=== PATIENT | male | born 1965 | race Caucasian/White ===

== ENCOUNTER → 2019-03-25 | Outpatient (CLI) | payer OTHER ==
[~2019-03-25] MED LIST: ASPI81CH PO; CEPH500 PO; HYDACE5 PO; HYDCHL12.5 PO; LEVFLO500 PO; LISI20 PO; OXYACE5T PO; PROM25 PO
[2019-03-25 09:00] LABS: BASOPHILS ABSOLUTE AUTO 0.03 K/mm3 (0.00-0.23); BASOPHILS PERCENT AUTO 0 % (0-2); EOSINOPHILS ABSOLUTE AUTO 0.21 K/mm3 (0.00-0.68); EOSINOPHILS PERCENT AUTO 2 % (0-6); Hemoglobin 15.1 g/dL (13.5-17.5); IMMATURE GRAN ABSOLUTE AUTO 0.12 K/mm3 (0.00-0.10); IMMATURE GRAN PERCENT AUTO 1 % (0-1); LYMPHOCYTES ABSOLUTE AUTO 2.94 K/mm3 (0.84-5.20); LYMPHOCYTES PERCENT AUTO 34 % (21-46); MONOCYTES ABSOLUTE AUTO 0.64 K/mm3 (0.16-1.47); MONOCYTES PERCENT AUTO 7 % (4-13); Mean Corpuscular HGB 28.5 pg (26.0-34.0); Mean Corpuscular HGB Conc 33.6 g/dL (31.5-36.5); Mean Corpuscular Volume 85 fL (80-100); Mean Platelet Volume 9.7 fL (9.1-12.4); NEUTROPHILS ABSOLUTE AUTO 4.72 K/mm3 (1.96-9.15); NEUTROPHILS PERCENT AUTO 55 % (41-73); Platelet Count 280 K/mm3 (150-400); RDW Standard Deviation 40.1 fL (35.1-46.3); Red Blood Cell Count 5.29 M/mm3 (4.30-5.90); White Blood Cell Count 8.66 K/mm3 (4.00-11.30)
[2019-03-25 09:08] LABS: Alanine Aminotransfer (ALT/SGP 31 U/L (12-78); Albumin, Blood 3.9 g/dL (3.4-5.0); Albumin/Globulin Ratio 1.1 (0.8-1.8); Alk Phos 24 U/L (40-126); Anion Gap 8 mmol/L (6-16); Aspartate Aminotrans (AST/SGOT 18 U/L (12-37); Bilirubin, Total 0.8 mg/dL (0.1-1.0); Blood Urea Nitrogen 19 mg/dL (8-24); Bun/Creatinine Ratio 17.6 (12.0-20.0); CO2, Blood 29 mmol/L (21-32); Calcium, Blood 8.5 mg/dL (8.5-10.1); Chloride, Blood 102 mmol/L (98-108); Creatinine, Blood 1.08 mg/dL (0.60-1.20); Globulin, Blood 3.7 g/dL (2.2-4.0); Glomerular Filtration Rate >60 (60-); Glucose, Blood 102 mg/dL (70-99); Potassium, Blood 4.1 mmol/L (3.5-5.5); Sodium, Blood 139 mmol/L (136-145); Total Protein, Blood 7.6 g/dL (6.4-8.2)
== END | disposition home or self-care (01) ==
LOC: LAB SHORT 08:54 → LAB EV 08:54
PROVIDERS: Physician Assistant Medical
DX: R10.9 Unspecified abdominal pain (principal)
CPT/HCPCS: 80053; 85025

== ENCOUNTER → 2020-03-06 | Outpatient (CLI) | payer OTHER ==
[2020-03-06 09:27] LABS: BASOPHILS ABSOLUTE AUTO 0.02 K/mm3 (0.00-0.23); BASOPHILS PERCENT AUTO 0 % (0-2); EOSINOPHILS ABSOLUTE AUTO 0.13 K/mm3 (0.00-0.68); EOSINOPHILS PERCENT AUTO 2 % (0-6); Hematocrit 45.5 % (37.0-53.0); Hemoglobin 15.3 g/dL (13.5-17.5); IMMATURE GRAN ABSOLUTE AUTO 0.08 K/mm3 (0.00-0.10); IMMATURE GRAN PERCENT AUTO 1 % (0-1); LYMPHOCYTES ABSOLUTE AUTO 2.16 K/mm3 (0.84-5.20); LYMPHOCYTES PERCENT AUTO 31 % (21-46); MONOCYTES ABSOLUTE AUTO 0.61 K/mm3 (0.16-1.47); MONOCYTES PERCENT AUTO 9 % (4-13); Mean Corpuscular HGB 28.4 pg (26.0-34.0); Mean Corpuscular HGB Conc 33.6 g/dL (31.5-36.5); Mean Corpuscular Volume 85 fL (80-100); NEUTROPHILS ABSOLUTE AUTO 4.04 K/mm3 (1.96-9.15); NEUTROPHILS PERCENT AUTO 57 % (41-73); Platelet Count 269 K/mm3 (150-400); RDW Coefficient Variation 13.2 % (11.7-14.2); RDW Standard Deviation 40.2 fL (35.1-46.3); Red Blood Cell Count 5.38 M/mm3 (4.30-5.90); White Blood Cell Count 7.04 K/mm3 (4.00-11.30)
[2020-03-06 09:41] LABS: Alanine Aminotransfer (ALT/SGP 36 U/L (12-78); Albumin/Globulin Ratio 1.1 (0.8-1.8); Alk Phos 20 U/L (40-126); Anion Gap 8 mmol/L (6-16); Aspartate Aminotrans (AST/SGOT 15 U/L (12-37); Bilirubin, Total 0.7 mg/dL (0.1-1.0); Blood Urea Nitrogen 19 mg/dL (8-24); Bun/Creatinine Ratio 17.1 (12.0-20.0); CO2, Blood 30 mmol/L (21-32); Calcium, Blood 8.4 mg/dL (8.5-10.1); Chloride, Blood 109 mmol/L (98-108); Creatinine, Blood 1.11 mg/dL (0.60-1.20); Globulin, Blood 3.5 g/dL (2.2-4.0); Glomerular Filtration Rate >60 (60-); Glucose, Blood 103 mg/dL (70-99); Potassium, Blood 4.4 mmol/L (3.5-5.5); Sodium, Blood 147 mmol/L (136-145); Total Protein, Blood 7.5 g/dL (6.4-8.2)
== END | disposition home or self-care (01) ==
LOC: LAB EV 09:22 → LAB SHORT 09:22
PROVIDERS: General Practice
DX: R10.9 Unspecified abdominal pain (principal)
CPT/HCPCS: 80053; 85025; 87086

== ENCOUNTER 2021-05-05 12:29 | Day surgery (SDC) | payer OTHER ==
[~2021-05-05] VITALS: Ht 193 cm; Wt 143.5 kg
[~2021-05-05 12:29] MED LIST changes: +ZESTRIL40 M1 PO
== END 2021-05-05 14:25 | disposition home or self-care (01) ==
LOC: ORSCSDS 12:29
PROVIDERS: Internal Medicine Gastroenterology
PROC: 0DJD8ZZ Inspection of Lower Intestinal Tract, Via Natural or Artificial Opening Endoscopic (ICD-10-PCS; principal; 2021-05-05 13:45)
DX: Z12.11 Encounter for screening for malignant neoplasm of colon (principal); Z86.010 Personal history of colon polyps; K57.30 Diverticulosis of large intestine without perforation or abscess without bleeding; I10 Essential (primary) hypertension; G47.33 Obstructive sleep apnea (adult) (pediatric); E66.01 Morbid (severe) obesity due to excess calories; Z68.38 Body mass index [BMI] 38.0-38.9, adult; Z79.899 Other long term (current) drug therapy
CPT/HCPCS: J2704; J7120

== ENCOUNTER 2021-11-23 12:01 | Inpatient (IN) | payer OTHER ==
[~2021-11-23] VITALS: Ht 193 cm; Wt 151.5 kg
[2021-11-23 12:40] LABS: BASOPHILS ABSOLUTE AUTO 0.04 K/mm3 (0.00-0.23); BASOPHILS PERCENT AUTO 0 % (0-2); EOSINOPHILS PERCENT AUTO 1 % (0-6); Hematocrit 46.6 % (37.0-53.0); Hemoglobin 15.7 g/dL (13.5-17.5); IMMATURE GRAN ABSOLUTE AUTO 0.06 K/mm3 (0.00-0.10); IMMATURE GRAN PERCENT AUTO 1 % (0-1); LYMPHOCYTES ABSOLUTE AUTO 2.26 K/mm3 (0.84-5.20); LYMPHOCYTES PERCENT AUTO 25 % (21-46); MONOCYTES ABSOLUTE AUTO 0.92 K/mm3 (0.16-1.47); MONOCYTES PERCENT AUTO 10 % (4-13); Mean Corpuscular HGB 28.7 pg (26.0-34.0); Mean Corpuscular HGB Conc 33.7 g/dL (31.5-36.5); Mean Corpuscular Volume 85 fL (80-100); Mean Platelet Volume 9.7 fL (9.1-12.4); NEUTROPHILS ABSOLUTE AUTO 5.59 K/mm3 (1.96-9.15); NEUTROPHILS PERCENT AUTO 62 % (41-73); Platelet Count 270 K/mm3 (150-400); RDW Coefficient Variation 12.3 % (11.7-14.2); RDW Standard Deviation 38.2 fL (35.1-46.3); Red Blood Cell Count 5.47 M/mm3 (4.30-5.90); White Blood Cell Count 8.97 K/mm3 (4.00-11.30)
[2021-11-23 12:52] LABS: Alanine Aminotransfer (ALT/SGP 36 U/L (12-78); Albumin, Blood 3.9 g/dL (3.4-5.0); Albumin/Globulin Ratio 1.1 (0.8-1.8); Alk Phos 27 U/L (50-136); Anion Gap 4 mmol/L (6-16); Aspartate Aminotrans (AST/SGOT 16 U/L (12-37); Bilirubin, Total 0.8 mg/dL (0.1-1.0); Blood Urea Nitrogen 12 mg/dL (8-24); Bun/Creatinine Ratio 10.8 (12.0-20.0); CO2, Blood 28 mmol/L (21-32); Calcium, Blood 8.7 mg/dL (8.5-10.1); Chloride, Blood 106 mmol/L (98-108); Creatinine, Blood 1.11 mg/dL (0.60-1.20); Globulin, Blood 3.5 g/dL (2.2-4.0); Glomerular Filtration Rate >60 (60-); Glucose, Blood 113 mg/dL (70-99); Potassium, Blood 3.7 mmol/L (3.5-5.5); Sodium, Blood 138 mmol/L (136-145); Total Protein, Blood 7.4 g/dL (6.4-8.2); Troponin I 0.244 ng/mL (0.000-0.040)
[2021-11-23 13:17] LABS: Influenza A, PCR NEGATIVE (NEGATIVE); Influenza B, PCR NEGATIVE (NEGATIVE); Resp Syncytial Virus, PCR NEGATIVE (NEGATIVE); SARS-Cov-2 (COVID-19) PCR, MMC NEGATIVE (NEGATIVE)
[2021-11-23 14:30] LABS: Anti-Xa UFH, PHA Monitoring <0.10 IU/mL; International Normalized Ratio 1.06; Prothrombin Time Results 11.1 Sec (9.7-11.5)
--- NOTE | 2021-11-23 18:35 | NUR ---
PT ARRIVAL ON THE UNIT.... PT ARRIVES ON THE UNIT FROM THE COMIC WRITER AT 1645, PT IS S/P STENT PLACEMENT TO THE RCA. TR BAND IN PLACE TO THE RIGHT RADIAL SITE, SMALL AMOUNT OF OOZING NOTED. THE PT DENIES ANY PAIN TO THE SITE, THE PT ALSO DENIES ANY CHEST PAIN/PRESSURE AT THIS TIME JUST STATES "MY CHEST FEELS A LITTLE FUNNY." THE PT DOES C/O OF A 3/10 HEADACHE. THE PT IS HYPERTENSIVE ON ARRIVAL WITH SBPs IN THE 190'S-200'S. THE PT IS ON RA WITH O2 SATS >90% L/S CLEAR T/O. BT PRESENT AND NORMOACTIVE, ABD IS LARGE, SOFT AND NONTENDER TO PALP.THE PT IS IN SR IN THE 70'S. TR BAND HAS 12MLS OF AIR. THE PT IS USING THE URINAL TO VOID. AT APROX 1730 THE PT STARTED TO C/O OF CHEST PAIN THAT STARTED AT A 4 THEN QUICKLY WENT TO A 6. THE PT WAS MEDICATED WITH IV MORPHINE PER EMAR THIS BROUGHT THE CHEST PAIN FROM A 6/10 TO A 3/10. HEPARIN GTT RUNNING AT 15 UNITS/KG/HR PER ORDERS. CALL LIGHT IN REACH WILL CONTINUE TO MONITOR.
--- NOTE | 2021-11-23 20:00 | NUR ---
ASSUMED CARE: AOX3. BEDREST. CHEST PAIN RIGHT MEDIAL, DULL PRESSURE 4/10. HEPIAN INFUSING. NO SOB. SINUS AT THIS TIME PER TELE STRIPS. CATH STENT TO RCA, T-BAND IN PLACE. HYPERTENSIVE IN THE 180'S. HR 70'S. NITRO DRIP STARTED, WILL TITRATE TO ASSIST CP. USES URINAL IN BED. WILL START ANOTHER IV, MONITOR CP, LABS, TR-BAND, ECT. CALL LIGHT IN REACH.
--- NOTE | 2021-11-23 23:52 | NUR ---
TR-BAND REMOVED, NO BLEEDING OR HEMATOMA NOTED. PLACED TEGADERM AND ARMBOARD. WILL MONITOR FOR CHANGES.
[2021-11-24 03:29] LABS: BASOPHILS ABSOLUTE AUTO 0.03 K/mm3 (0.00-0.23); BASOPHILS PERCENT AUTO 0 % (0-2); EOSINOPHILS ABSOLUTE AUTO 0.02 K/mm3 (0.00-0.68); EOSINOPHILS PERCENT AUTO 0 % (0-6); Hematocrit 43.1 % (37.0-53.0); Hemoglobin 14.5 g/dL (13.5-17.5); IMMATURE GRAN ABSOLUTE AUTO 0.06 K/mm3 (0.00-0.10); IMMATURE GRAN PERCENT AUTO 1 % (0-1); LYMPHOCYTES ABSOLUTE AUTO 1.64 K/mm3 (0.84-5.20); LYMPHOCYTES PERCENT AUTO 16 % (21-46); MONOCYTES ABSOLUTE AUTO 0.87 K/mm3 (0.16-1.47); MONOCYTES PERCENT AUTO 9 % (4-13); Mean Corpuscular HGB 28.5 pg (26.0-34.0); Mean Corpuscular HGB Conc 33.6 g/dL (31.5-36.5); Mean Corpuscular Volume 85 fL (80-100); Mean Platelet Volume 9.8 fL (9.1-12.4); NEUTROPHILS PERCENT AUTO 74 % (41-73); Platelet Count 269 K/mm3 (150-400); RDW Coefficient Variation 12.6 % (11.7-14.2); RDW Standard Deviation 38.6 fL (35.1-46.3); Red Blood Cell Count 5.08 M/mm3 (4.30-5.90); White Blood Cell Count 10.22 K/mm3 (4.00-11.30)
[2021-11-24 03:56] LABS: Anion Gap 6 mmol/L (6-16); Blood Urea Nitrogen 16 mg/dL (8-24); Bun/Creatinine Ratio 14.5 (12.0-20.0); CHOL/HDL RATIO 4.7; CO2, Blood 26 mmol/L (21-32); Calcium, Blood 8.3 mg/dL (8.5-10.1); Chloride, Blood 106 mmol/L (98-108); Cholesterol 170 mg/dL (50-200); Glomerular Filtration Rate >60 (60-); Glucose, Blood 123 mg/dL (70-99); HDL Cholesterol 36 mg/dL (>39); LDL/HDL RATIO 3.1; Low Density Lipoprotein Chol 112 mg/dL (0-110); Potassium, Blood 4.1 mmol/L (3.5-5.5); Sodium, Blood 138 mmol/L (136-145); Triglycerides 112 mg/dL (30-160); Very Low Density Lipoprot Chol 22 mg/dL (6-32)
--- NOTE | 2021-11-24 06:18 | NUR ---
SHIFT SUMMARY: AOX3. BEDREST. CURRENTLY CHEST PAIN FREE. NITRO DRIP STOPPED, HE ONLY RECEIVED FOR SHORT PERIOD WITH THE HIGHEST 20MG. HEPARIN CONTINUES TO INFUSE AT 15. TR-BAND IS REMOVED AND SITE IS CDI WITH TEGADERM AND IV BOARD IN PLACE. HR AVERAGE IN THE 60-70'S. BP IS CURRENTLY IN THE 112/75. SATS 95% ON RA. NEW IV STARTED LEFT FA. LAST TROPONIN 1.7. USES URINAL IN BED. COMPLIANT WITH CARE. NAUSEA RESOLVED. NO SOB. NO OTHER CHANGES TO NOTE. CALL LIGHT IN REACH.
--- NOTE | 2021-11-24 08:52 | NUR ---
AM NOTE.... ASSUMED CARE OF PT AT 0700, THE PT IS A&Ox4. THE PT IS ON A HEPARIN GTT RUNNING PER ORDERS. THE PT'S NITRO GTT WAS STOPPED APROX 0600. THE PT DENIES ANY CHEST PAIN "SINCE LAST NIGHT." THE PT'S VS STABLE AT THE START OF THIS SHFIT. THE PT IS IN SR IN THE 60'S-70'S. NO EDEMA NOTED ON ASSESSMENT. THE RIGHT RADIAL SITE IS C/D/I, NO SWELLING, BLEEDING OR HEMATOMA NOTED. THE PT DENIES ANY NUMBNESS/TINGLING. L/S CLEAR T/O ON RA, USES CPAP FOR SLEEPING. BT PRESENT AND NORMOACTIVE, ABD IS LARGE, SOFT AND NONTENDER TO PALP. CALL LIGHT IN REACH WILL CONTINUE TO MONITOR.
--- NOTE | 2021-11-24 13:05 | NUR ---
PT UPDATE.... THE PT GOT UP WITH STAFF ASSIST AND WALKED AROUND THE ROOM, THE PT DENIED ANY CHEST PAIN/PRESSURE N/V OR SOB DURING HIS WALK. THE PT'S HR WAS IN THE 70'S AND HIS BP STABLE DUIRNG THIS TIME. HEPARIN GTT RUNNING PER ORDERS, PER DR. OSBORNE THE HEPARIN GTT IS TO BE STOPPED AT 1500 TODAY. WILL CONTINUE TO MONITOR.
--- NOTE | 2021-11-24 16:59 | NUR ---
SHIFT SUMMARY.... NO ACUTE NEGATIVE CHANGES NOTED THIS SHIFT. THE PT'S VS HAVE BEEN STABLE. THE PT HAS DENIED ANY CHEST PAIN THIS SHIFT. HE HAS BEEN UP IN THE CHAIR AND WALKING AROUND THE ROOM. THE PT IS INDEPENDENT WITH ADLs THE RIGHT RADIAL SITE IS STABLE, NO BLEEDING, OR HEMATOMA NOTED. THE HEPARIN WAS STOPPED PER DR. Kelley AT 1640. THE TOPONINS ARE TRENDING DOWN. THE PT IS TO TRANSFER TO PCU, REPORT CALLED TO ALIS RUBIO. ALL OF PT'S BELONGINGS PACKED AND SENT WITH THE PT.
--- NOTE | 2021-11-24 17:00 | NUR ---
Assumed care of patient. Report recieved from Rosalie FORENSIC NURSE. Patient arrived via WC. He is alert and oriented. Denies CP at this time. He is IND to bathroom. He denies needs at this time. Will continue to monitor.
--- NOTE | 2021-11-24 23:59 | NUR ---
ASSUMED CARE OF PT AT 1900. A/OX4. PT REPORTS HEADACHE IN L FRONTAL REGION THAT PATIENT ATTRIBUTES TO DEHYDRATION. AFTER DRINKING SOME WATER T/O OUR ENCOUNTER HE REPORTS IT BETTER. NEUROS INTACT. DENIES ANY CP/PRESSURE. USES CPAP AT HS. SR ON TELE IN 70'S. R RADIAL SITE WITH MINIMAL OLD DRAINAGE NOTED, DISTAL PULSES AND CAP REFILL WNL. WILL UPDATE CHANGES OCCUR.
[2021-11-25] MEDS ORDERED: ATOR20 PO (12:38)
[2021-11-25] MEDS ORDERED: CLOP75 PO (12:39)
[2021-11-25] MEDS ORDERED: Isosorbide Mono30 MG PO (12:39)
[2021-11-25] MEDS ORDERED: Lopressor 25 mg25 MG PO (12:40)
== END 2021-11-25 13:45 | disposition home or self-care (01) | DRG 247 ==
LOC: ER 12:01 → ICUE 14:52 → PCU 14:52 → ICUW 15:49 → ICUE 16:12 → PCU 11-24 17:08
PROVIDERS: Internal Medicine Interventional Cardiology; Physician Assistant; Student in an Organized Health Care Education/Training Program; ADMIT Internal Medicine
PROC: 027034Z Dilation of Coronary Artery, One Artery with Drug-eluting Intraluminal Device, Percutaneous Approach (ICD-10-PCS; principal; 2021-11-23)
PROC: 02C03ZZ Extirpation of Matter from Coronary Artery, One Artery, Percutaneous Approach (ICD-10-PCS; 2021-11-23)
PROC: 4A023N7 Measurement of Cardiac Sampling and Pressure, Left Heart, Percutaneous Approach (ICD-10-PCS; 2021-11-23)
PROC: B2111ZZ Fluoroscopy of Multiple Coronary Arteries using Low Osmolar Contrast (ICD-10-PCS; 2021-11-23)
PROC: 3E02340 Introduction of Influenza Vaccine into Muscle, Percutaneous Approach (ICD-10-PCS; 2021-11-23)
DX: I21.4 Non-ST elevation (NSTEMI) myocardial infarction (principal); I16.1 Hypertensive emergency; Z20.822 Contact with and (suspected) exposure to COVID-19; I25.10 Atherosclerotic heart disease of native coronary artery without angina pectoris; E78.5 Hyperlipidemia, unspecified; E66.9 Obesity, unspecified; Z68.37 Body mass index [BMI] 37.0-37.9, adult; Z23 Encounter for immunization; I10 Essential (primary) hypertension; Z79.82 Long term (current) use of aspirin; Z79.899 Other long term (current) drug therapy
CPT/HCPCS: 0241U; 36415; 71046; 76937; 80048; 80053; 80061; 83880; 84484; 85025; 85347; 85520; 85610; 90686; 92978; 93005; 93010; 93458; 94660; 94762; 99152; 99153; 99285-25; A9270; C1725; C1753; C1757; C1769; C1874; C1887; C1894; C8929; C9600; J0360; J0461; J1644; J1940; J2250; J2270; J2405; J3010; J3246; J7030; J7050; Q9957; Q9967

== ENCOUNTER 2021-12-24 08:32 | Day surgery (SDC) | payer OTHER ==
[~2021-12-24] VITALS: Ht 193 cm; Wt 145.0 kg
[~2021-12-24 08:32] MED LIST changes: +ATOR20 PO; +CLOP75 PO; +Isosorbide Mono30 MG PO; +Lopressor 25 mg25 MG PO
--- NOTE | 2021-12-24 12:35 | NUR ---
PT TO RECOVERY ROOM POST PROCEDURE. PT AWAKE AND CONVERSING APPROPRIATELY, REPORTS FEELING ANXIOUS POST PROCEDURE. PT REPORTS CHEST DISCOMFORT 1-2/10 POST INTERVENTION, DR PAREKH AWARE. MONITOR SB/SR 50-60'S, B/P 185/124, AFEBRILE, SPO2 95% RA. R RADIAL SITE NO SWELLING/HEMATOMA, TR BAND IN PLACE; RUE POSITIVE PLEUTH POST TR BAND PLACEMENT.
[2021-12-24] MEDS ORDERED: LISI20 PO (12:54)
--- NOTE | 2021-12-24 13:35 | NUR ---
PT REPORTS ANXIETY RESOLVED, CHEST PAIN REMAINS 1-2/.
--- NOTE | 2021-12-24 15:44 | NUR ---
PT DRESSED SELF WITHOUT ISSUE, SITE UNCHANGED; AMB TO BATHROOM, SITE UNCHANGED. TR BAND REMOVED CLOTH DOT AND WRIST IMMOBILIZER PLACED, IV REMOVED-CANNULA INTACT
[2021-12-24] MEDS ORDERED: METO25ER PO (15:53)
--- NOTE | 2021-12-24 16:00 | NUR ---
HOME MEDICATIONS VERIFIED WITH PT AND CLARIFIED WITH DR PAREKH; ORDERS RECEIVED.
--- NOTE | 2021-12-24 16:08 | NUR ---
PT RECEIVED DISCHARGE INSTRUCTIONS, MED LIST AND AFTER CARE INSTRUCTIONS; VERBALIZED GOOD UNDERSTANDING. PT LEFT FACILITY VIA W/C, CONDITION STABLE.
== END 2021-12-24 16:08 | disposition home or self-care (01) ==
LOC: MHTC 08:32
DX: I25.10 Atherosclerotic heart disease of native coronary artery without angina pectoris (principal); I22.2 Subsequent non-ST elevation (NSTEMI) myocardial infarction; E78.5 Hyperlipidemia, unspecified; I10 Essential (primary) hypertension
CPT/HCPCS: 76937; 85347; 99152; 99153; A9270; C1725; C1753; C1769; C1874; C1887; C9600; C9601; J0360; J1644; J2250; J3010; J7030; J7050; Q9967

== ENCOUNTER 2023-12-19 08:31 | Emergency (ER) | payer OTHER ==
[~2023-12-19] VITALS: Ht 195.6 cm; Wt 149.7 kg
[~2023-12-19 08:31] MED LIST changes: +Flomax0.4 MG PO; +METO25ER PO; +ONDA4ODT MM; +Roxicodone5 MG PO
[2023-12-19 10:05] LABS: Source, Urine Clean Catch
[2023-12-19 10:08] LABS: BASOPHILS ABSOLUTE AUTO 0.03 K/mm3 (0.00-0.23); BASOPHILS PERCENT AUTO 0 % (0-2); EOSINOPHILS PERCENT AUTO 3 % (0-6); Hematocrit 46.5 % (37.0-53.0); Hemoglobin 15.7 g/dL (13.5-17.5); IMMATURE GRAN ABSOLUTE AUTO 0.05 K/mm3 (0.00-0.10); IMMATURE GRAN PERCENT AUTO 1 % (0-1); LYMPHOCYTES ABSOLUTE AUTO 1.94 K/mm3 (0.84-5.20); LYMPHOCYTES PERCENT AUTO 25 % (21-46); MONOCYTES ABSOLUTE AUTO 0.62 K/mm3 (0.16-1.47); MONOCYTES PERCENT AUTO 8 % (4-13); Mean Corpuscular HGB 28.6 pg (26.0-34.0); Mean Corpuscular HGB Conc 33.8 g/dL (31.5-36.5); Mean Corpuscular Volume 85 fL (80-100); Mean Platelet Volume 9.5 fL (9.1-12.4); NEUTROPHILS ABSOLUTE AUTO 5.02 K/mm3 (1.96-9.15); NEUTROPHILS PERCENT AUTO 64 % (41-73); Platelet Count 277 K/mm3 (150-400); RDW Coefficient Variation 12.8 % (11.7-14.2); RDW Standard Deviation 39.3 fL (35.1-46.3); Red Blood Cell Count 5.48 M/mm3 (4.30-5.90); White Blood Cell Count 7.86 K/mm3 (4.00-11.30)
[2023-12-19 10:29] LABS: Appearance, Urine Clear (Clear); Bilirubin, Urine Neg (Neg); Blood, Urine 1+ (Neg); Color, Urine Yellow (P-Yellow); Glucose Qualitative, Urine Neg (Neg); Ketones, Urine Neg (Neg); Leukocyte Esterase, Urine Neg (Neg); Nitrite, Urine Neg (Neg); Protein, Urine 1+ (Neg); Specific Gravity, Urine 1.025 (1.003-1.022); Urobilinogen, Urine 1+ (Normal)
[2023-12-19 10:47] LABS: Bacteria Mod /hpf; Squamous Epithelial Cells Mod /hpf (Few)
[2023-12-19 10:49] LABS: Mucus Heavy (0-Heavy)
[2023-12-19 10:51] LABS: Albumin, Blood 3.7 g/dL (3.4-5.0); Bilirubin, Total 0.9 mg/dL (0.1-1.0); Calcium, Blood 9.3 mg/dL (8.5-10.1); Globulin, Blood 3.7 g/dL (2.2-4.0); Potassium, Blood 4.5 mmol/L (3.5-5.5); Total Protein, Blood 7.4 g/dL (6.4-8.2)
[2023-12-19] MEDS ORDERED: IBUP600 PO (11:33)
[2023-12-19 11:45] VITALS: BP 171/110
== END 2023-12-19 11:58 | disposition home or self-care (01) ==
LOC: ER 08:31
PROVIDERS: Physician Assistant
DX: N20.0 Calculus of kidney (principal); I10 Essential (primary) hypertension; I25.2 Old myocardial infarction; E78.5 Hyperlipidemia, unspecified; Z79.82 Long term (current) use of aspirin; Z79.899 Other long term (current) drug therapy
CPT/HCPCS: 76770; 80053; 81001; 85025; 87086; 99284-25

== ENCOUNTER → 2024-06-03 | Outpatient (CLI) | payer OTHER ==
[~2024-06-03] MED LIST changes: +IBUP600 PO
== END | disposition home or self-care (01) ==
LOC: LAB 08:37 → LAB SHORT 08:37
DX: R10.9 Unspecified abdominal pain (principal)
CPT/HCPCS: 87086